=== PATIENT | male | born 1985 | race African-American/Black ===

== ENCOUNTER 2017-11-25 22:05 | Emergency (ER) | payer BC, MEDICAID ==
[~2017-11-25] VITALS: Ht 180.3 cm; Wt 72.0 kg
[2017-11-25] MEDS ORDERED: MORPHINE SULFATE 4 MG/ML CPJ (NOT FOR IM USE) IV STA (22:22)
[2017-11-25] MEDS ORDERED: SODIUM CHLORIDE 0.9% 500 ML IV ONE (22:22)
[2017-11-25] MEDS ORDERED: ONDANSETRON HCL 4MG/2ML VIAL IV STA (22:22)
[2017-11-25] MEDS ORDERED: LEVETIRACETAM 1,000 MG in SODIUM CHLORIDE 0.9% 100 ML IV ONE (22:30)
[2017-11-25] MEDS ORDERED: DEXAMETHASONE 10 MG/ML VIAL IV ONE (22:45)
[2017-11-25 23:23] LABS: BASOPHILS % 0.3 % (0.0-2.0); EOSINOPHILS % 0.3 % (0.0-5.0); HEMATOCRIT. 44.8 % (42.0-52.0); HEMOGLOBIN. 15.2 g/dL (14.0-18.0); MEAN CORPUSCULAR HEMOGLOBIN 30.8 pg (28.0-32.0); MEAN PLATELET VOLUME 7.9 fl (7.4-10.4); MONOCYTES % 6.5 % (2.0-8.0); NEUTROPHILS % 78.9 % (40.0-76.0); PLATELET 195 x1000/uL (130-400); RED BLOOD CELL COUNT 4.93 mill/uL (4.7-6.1)
[2017-11-25 23:25] LABS: CHLORIDE 104 mEq/L (98-107)
[2017-11-25 23:27] LABS: INR 1.1; PROTHROMBIN TIME 11.1 sec (9.4-11.6)
[2017-11-25 23:40] LABS: CARBON DIOXIDE 21 mEq/L (21-32); ETHANOL BLOOD < 10 mg/dL
[2017-11-25] MEDS ORDERED: POTASSIUM CHLORIDE 20MEQ TABLET SR PO ONE (23:45)
[2017-11-25 23:53] LABS: CARBAMAZEPINE < 0.5 ug/mL (4-12); PHENOBARBITAL < 2.1 ug/mL (15.0-40.0); VALPROIC ACID < 3.0 ug/mL (50-100)
[2017-11-26 01:34] LABS: CLARITY URINE CLEAR (CLEAR); COLOR URINE YELLOW (YELLOW); KETONES URINE TRACE (NEGATIVE); LEUKOCYTE ESTERASE URINE NEGATIVE (NEGATIVE); NITRITE URINE NEGATIVE (NEGATIVE); OCCULT BLOOD URINE TRACE (NEGATIVE); PROTEIN URINE TRACE (NEGATIVE); UROBILINOGEN URINE 0.2 E.U./dL (0.2-1.0)
[2017-11-26 01:36] LABS: *AMPHETAMINES SCREEN URINE NEGATIVE (NEGATIVE); *BARBITURATES SCREEN URINE NEGATIVE (NEGATIVE); *BENZODIAZEPINES SCREEN URINE NEGATIVE (NEGATIVE); *COCAINE SCREEN URINE NEGATIVE (NEGATIVE); CANNABINOID URINE SCREEN NEGATIVE (NEGATIVE); METHADONE URINE SCREEN NEGATIVE (NEGATIVE); OPIATES URINE SCREEN PRESUMTIVE POSITIVE (NEGATIVE); PHENCYCLIDINE URINE SCREEN NEGATIVE (NEGATIVE)
[2017-11-26] MEDS ORDERED: LEVETIRACETAM 500 MG in SODIUM CHLORIDE 0.9% 100 ML IV SCH (09:45)
[2017-11-26] MEDS ORDERED: LEVETIRACETAM 500MG PREMIX 100 ML IV NR (11:15)
[2017-11-26] MEDS ORDERED: DEXAMETHASONE 4MG/ML 1ML VIAL IV SCH (12:00)
[2017-11-26 12:51] VITALS: BP 130/72
== END 2017-11-26 12:52 | disposition home or self-care (01) ==
LOC: ER 22:17 → CANBEDREQ 11-26 01:32 → ER 11-26 12:52
DX: C71.4 Malignant neoplasm of occipital lobe (principal); G93.6 Cerebral edema; Q28.2 Arteriovenous malformation of cerebral vessels; G40.909 Epilepsy, unspecified, not intractable, without status epilepticus; Z92.21 Personal history of antineoplastic chemotherapy; Z92.3 Personal history of irradiation
CPT/HCPCS: 36415; 70450; 80053; 80156; 80165; 80184; 80185; 80305; 81001; 83880; 84443; 85025; 85610; 93005; 96361; 96365; 96367; 96375; 96376; 99285; G0482; J1100; J1953; J2270; J2405; J7040; Z7610; J7050

== ENCOUNTER 2018-06-13 19:41 | Emergency (ER) | payer BC, MEDICAID ==
[~2018-06-13] VITALS: Ht 185.4 cm; Wt 73.0 kg
[2018-06-13 19:44] VITALS: BP 117/71
== END 2018-06-14 00:34 | disposition left against medical advice (07) ==
LOC: ER 21:41
DX: R51 Headache (principal); Z53.21 Procedure and treatment not carried out due to patient leaving prior to being seen by health care provider